=== PATIENT | female | born 1980 | race Asian ===

== ENCOUNTER 2022-07-28 10:06 | Outpatient (CLI) | payer OTHER ==
--- NOTE | 2022-07-28 10:51 | XRAY Report ---
PROCEDURE: Chest 2 View X-Ray INDICATIONS: COUGH TECHNIQUE: 2 views of the chest were acquired. COMPARISON: None FINDINGS: Surgical changes and devices: None. Lungs and pleura: No pleural effusions or pneumothorax. Lungs are clear. Mediastinum: Mediastinal contours are normal. Heart size is normal. Bones and chest wall: No suspicious bony abnormalities. Soft tissues appear unremarkable. IMPRESSION: No evidence for active disease in the chest. Reviewed by: Hugh Ulloa MD on 07/28/2022 10:49 AM [facility] Approved by: Hugh Ulloa MD on 07/28/2022 10:49 AM [facility] Station ID: [id number]
== END 2022-07-28 10:07 | disposition home or self-care (01) ==
LOC: DI 10:06
PROVIDERS: ATTEND Internal Medicine
DX: R05.3 Chronic cough (principal)

== ENCOUNTER 2022-07-29 02:59 | Emergency (ER) | payer OTHER ==
--- NOTE | 2022-07-29 04:13 | ED Physician Documentation ---
PD HPI DYSPNEA - Stated complaint Stated Complaint: hard to breathe, cough - Chief complaint Chief Complaint: Resp - History obtained from History obtained from: Patient - History of Present Illness Timing - onset: How many weeks ago (1) Timing - details: Gradual onset Improved by: Other (no ameliorating factors) Associated symptoms: Cough, Chest pain / discomfort. 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 Had outpatient CXR yesterday and this was interpreted as a normal study by radiologist ("no evidence for active disease in the chest"). Review of Systems Constitutional: denies: Fever, Chills, Sweats Cardiac: reports: Chest pain / pressure. denies: Palpitations, Pedal edema, Calf pain Respiratory: reports: Dyspnea, Cough. denies: Hemoptysis, Wheezing PD ED PE NORMAL - Vitals Vital signs reviewed: Yes - General General: Alert and oriented X 3, No acute distress, Well developed/nourished - HEENT HEENT: Moist mucous membranes - Neck Neck: Supple, no meningeal sign - Cardiac Cardiac: RRR, No murmur - Respiratory Respiratory: No respiratory distress, Clear bilaterally - Extremities Extremities: No edema Results - Vitals Vitals: Vital Signs - 24 hr 07/29/22 07/29/22 03:08 05:01 Temperature 36.9 C 2.6 C L Heart Rate 87 84 Respiratory 16 20 Rate Blood Pressure 110/65 116/73 O2 Saturation 99 99 Oxygen O2 Source Room air - Labs Labs: Laboratory Tests 07/29/22 03:05 Nasal Adenovirus (PCR) NOT DETECTED Nasal B. parapertussis DNA (PCR) NOT DETECTED Nasal Coronavir 229E PCR NOT DETECTED Nasal Coronavir HKU1 PCR NOT DETECTED Nasal Coronavir NL63 PCR NOT DETECTED Nasal Coronavir OC43 PCR NOT DETECTED Nasal Enterovir/Rhinovir PCR NOT DETECTED Nasal Influenza B PCR NOT DETECTED Nasal Influenza A PCR NOT DETECTED Nasal Parainfluen 1 PCR NOT DETECTED Nasal Parainfluen 2 PCR NOT DETECTED Nasal Parainfluen 3 PCR NOT DETECTED Nasal Parainfluen 4 PCR NOT DETECTED Nasal RSV (PCR) DETECTED A Nasal B.pertussis DNA PCR NOT DETECTED Nasal C.pneumoniae (PCR) NOT DETECTED Amilcar Human Metapneumo PCR NOT DETECTED Nasal M.pneumoniae (PCR) NOT DETECTED Nasal SARS-CoV-2 (PCR) NOT DETECTED PD MEDICAL DECISION MAKING - ED course Complexity details: considered differential, d/w patient ED course: Respiratory PCR panel is positive for RSV, negative for other viruses tested. She is PERC negative. She is in NAD and lungs are CTA bilaterally on exam. Results d/w patient, return precautions discussed. Provided with work note. Departure - Departure Disposition: Home, Self Care Clinical Impression: RSV infection Condition: Good Instructions: Virus Respiratory Syncytial, ED RSV Bronchiolitis Follow-Up: Meghana Bridges MD [Primary Care Provider] - Forms: Activity restrictions Discharge Date/Time: 07/29/22 05:01
[2022-07-29 04:21] LABS: CORONAVIRUS 229E-RESP PCR NOT DETECTED; CORONAVIRUS HKU1-RESP PCR NOT DETECTED; CORONAVIRUS NL63-RESP PCR NOT DETECTED; CORONAVIRUS OC43-RESP PCR NOT DETECTED; HUMAN METAPNEUMOVIRUS NOT DETECTED; INFLUENZA A- RESP PCR PANEL NOT DETECTED; INFLUENZA B - RESP PCR PANEL NOT DETECTED; PARAINFLUENZA VIRUS 1 NOT DETECTED; PARAINFLUENZA VIRUS 2 NOT DETECTED; PARAINFLUENZA VIRUS 3 NOT DETECTED; PARAINFLUENZA VIRUS 4 NOT DETECTED; RHINOVIRUS/ENTEROVIRUS NOT DETECTED; SARS-CoV-2 -RESP PCR PANEL NOT DETECTED
[2022-07-29 04:22] LABS: B. PARAPERTUSSIS- RESP PCR PAN NOT DETECTED; B. PERTUSSIS- RESP PCR PANEL NOT DETECTED; C. PNEUMONIAE- RESP PCR PANEL NOT DETECTED; M. PNEUMONIAE- RESP PCR PANEL NOT DETECTED; RSV- RESP PCR PANEL DETECTED
[2022-07-29 05:05] VITALS: BP 116/73
== END 2022-07-29 05:01 | disposition home or self-care (01) ==
LOC: ED 02:59
DX: R05.9 Cough, unspecified (principal); B97.4 Respiratory syncytial virus as the cause of diseases classified elsewhere; Z20.822 Contact with and (suspected) exposure to COVID-19
CPT/HCPCS: 87633; 99283

== ENCOUNTER 2022-08-08 22:36 | Emergency (ER) | payer OTHER ==
--- NOTE | 2022-08-08 23:14 | ED Physician Documentation ---
PD HPI CHEST PAIN - Stated complaint Stated Complaint: CHEST PX,LT SIDE NUMB & PX - Chief complaint Chief Complaint: Cardiac - History obtained from History obtained from: Patient - Additional information Additional information: 42yF with pmh hld, nonsmoker, p/w cp at rest that started suddenly while standing talking on the phone. radiates to back, L shoulder, a/w shoulder numbness. patient was concerned because her HR was 140 on home HR monitor. she recently was ill with RSV with frequent coughing per her report. pain is reproducible with palpation. Review of Systems Ten Systems: 10 systems reviewed and negative Constitutional: denies: Fever, Chills Cardiac: reports: Chest pain / pressure, Palpitations Respiratory: denies: Dyspnea, Cough GI: denies: Nausea PD PAST MEDICAL HISTORY - Past Surgical History Past Surgical History: No - Present Medications Home Medications: Ambulatory Orders Medication Instructions Recorded Confirmed Melatonin 3 mg PO 08/08/22 Ketorolac [Toradol] 10 mg PO Q6H PRN #30 tablet 08/09/22 - Allergies Allergies/Adverse Reactions: Allergies Allergy/AdvReac Type Severity Reaction Status Date / Time No Known Drug Allergies Allergy Verified 08/08/22 22:53 - Social History Does the pt smoke?: No Smoking Status: Never smoker Does the pt drink ETOH?: No Does the pt have substance abuse?: No - Immunizations Immunizations are current?: No - POLST Patient has POLST: No PD ED PE NORMAL - Vitals Vital signs reviewed: Yes - General General: Alert and oriented X 3, No acute distress - HEENT HEENT: Atraumatic, PERRL, EOMI - Neck Neck: Supple, no meningeal sign - Cardiac Cardiac: RRR - Respiratory Respiratory: No respiratory distress, Clear bilaterally - Abdomen Abdomen: Non tender, Non distended Results - Vitals Vitals: Vital Signs - 24 hr 08/08/22 08/08/22 08/09/22 22:42 23:20 00:25 Temperature 36.7 C Heart Rate 82 64 66 Respiratory 92 H 18 15 Rate Blood Pressure 115/84 H 161/99 H 111/69 O2 Saturation 100 97 97 08/09/22 08/09/22 08/09/22 00:30 01:03 01:17 Temperature Heart Rate 61 65 Respiratory 15 14 Rate Blood Pressure 113/76 110/75 O2 Saturation 98 98 Oxygen O2 Source Room air - EKG (time done) 2240 Rate: Rate (enter#) (86) Rhythm: NSR [place]: Normal Intervals: QRS normal Ischemia: T wave inversion (v6 (but not I/avL)) Computer interpretation: Disagree with computer (ekg not c/w old infarct) - Labs Labs: Laboratory Tests 08/08/22 08/08/22 08/08/22 23:16 23:16 23:16 WBC 10.2 RBC 4.83 Hgb 12.8 Hct 40.0 MCV 82.8 MCH 26.5 L MCHC 32.0 RDW 12.6 Plt Count 333 MPV 9.5 Neut # (Auto) 5.9 Lymph # (Auto) 3.1 [place] # (Auto) 0.8 Eos # (Auto) 0.3 Baso # (Auto) 0.1 Absolute Nucleated RBC 0.00 Nucleated RBC % 0.0 Sodium 134 L Potassium 3.6 Chloride 100 L Carbon Dioxide 26 Anion Gap 8.0 BUN 12 Creatinine 0.6 Estimated GFR (MDRD) 111 Glucose 93 Calcium 9.4 Total Bilirubin 1.4 H AST 20 ALT 26 Alkaline Phosphatase 26 L Troponin I High Sens 3.8 Total Protein 7.4 Albumin 4.1 Globulin 3.3 Albumin/Globulin Ratio 1.2 Lipase 37 PD Medical Decision Making - ED course ED course: 42yF presented for evaluation of CP. cardiac etiology unlikely given clinical picture. HEART score 1. PERC negative therefore PE unlikely. CXR clear for pneumonia, PTX or effusion. pain is reroducible with palpation. in setting of recent URI, perhaps patient experiencing some post tussive costochondral pain. toradol provided and return precautions given. plan to f/u with pcp. Departure - Departure Disposition: 01 Home, Self Care Clinical Impression: Chest pain Condition: Good Instructions: ED Chest Pain Atypical Unkn Cause Prescriptions: Ketorolac [Toradol] 10 mg PO Q6H PRN #30 tablet PRN Reason: Pain Comments: You are seen in the emergency department for chest pain and underwent a cardiac evaluation. Your lab work, x-ray, and EKG showed no emergent findings. Please follow-up with your primary care provider and return to the emergency department for any new or worsening symptoms or concerns. A prescription for Toradol was printed and provided to you in the ED. This is a NSAID pain medication.
[2022-08-08 23:24] LABS: BASOPHILS # (AUTO) 0.1 10^3/uL (0.0-0.1); BASOPHILS % (AUTO) 0.6 %; EOSINOPHILS # (AUTO) 0.3 10^3/uL (0.0-0.7); EOSINOPHILS % (AUTO) 2.8 %; HGB - HEMOGLOBIN 12.8 g/dL (12.0-16.0); LYMPHOCYTES # (AUTO) 3.1 10^3/uL (1.5-3.5); LYMPHOCYTES % (AUTO) 30.3 %; MEAN CORPUSCULAR HEMOGLOBIN 26.5 pg (27.0-31.0); MEAN CORPUSCULAR VOLUME 82.8 fL (81.0-99.0); MEAN PLATELET VOLUME 9.5 fL (7.9-10.8); MONOCYTES # (AUTO) 0.8 10^3/uL (0.0-1.0); MONOCYTES % (AUTO) 7.7 %; NEUTROPHILS # (AUTO) 5.9 10^3/uL (1.5-6.6); NEUTROPHILS % (AUTO) 58.3 %; PLT - PLATELET COUNT 333 10^3/uL (130-450); RED BLOOD COUNT 4.83 10^6/uL (4.20-5.40); RED CELL DISTRIBUTION WIDTH 12.6 % (12.0-15.0); WHITE BLOOD COUNT 10.2 x10^3/uL (4.8-10.8)
[2022-08-08 23:35] LABS: ALBUMIN 4.1 g/dL (3.2-5.5); ALBUMIN/GLOBULIN RATIO 1.2 (1.0-2.2); BILIRUBIN,TOTAL 1.4 mg/dL (0.2-1.0); CALCIUM 9.4 mg/dL (8.5-10.3); CREATININE 0.6 mg/dL (0.4-1.0); POTASSIUM 3.6 mmol/L (3.5-5.0); TOTAL PROTEIN 7.4 g/dL (6.7-8.2)
--- NOTE | 2022-08-09 00:35 | XRAY Report ---
PROCEDURE: Chest 1 View X-Ray INDICATIONS: Chest pain TECHNIQUE: One view of the chest was acquired. COMPARISON: Chest x-ray 07/28/2022. FINDINGS: Surgical changes and devices: None. Lungs and pleura: No pleural effusions or pneumothorax. Lungs are clear. Mediastinum: Mediastinal contours appear normal. Heart size is normal. Bones and chest wall: No suspicious bony lesions. Overlying soft tissues appear unremarkable. IMPRESSION: 1. No acute cardiopulmonary disease. Reviewed by: Rei Christie MD on 08/09/2022 12:43 AM PST Approved by: Rei Christie MD on 08/09/2022 12:43 AM PST Station ID: [id number]
[2022-08-09 01:31] VITALS: BP 111/77
[2022-08-09] MEDS: KETOROLAC 15 MG/ML VIAL IVP STA (01:39)
== END 2022-08-09 01:51 | disposition home or self-care (01) ==
LOC: ED 22:36
DX: R07.9 Chest pain, unspecified (principal)
CPT/HCPCS: 36415; 80053; 83690; 84484; 85025; 93005; 96374; 99282

== ENCOUNTER 2022-08-17 15:02 | Outpatient (CLI) | payer OTHER | END 2022-08-17 15:03 | disposition home or self-care (01) | LOC: DI 15:02 | PROVIDERS: ATTEND Internal Medicine | DX: R07.89 Other chest pain (principal); R94.31 Abnormal electrocardiogram [ECG] [EKG] | CPT/HCPCS: 93306 ==

== ENCOUNTER 2022-08-24 08:00 | Outpatient (CLI) | payer OTHER ==
[2022-08-24 18:04] LABS: BASOPHILS # (AUTO) 0.1 10^3/uL (0.0-0.1); BASOPHILS % (AUTO) 0.8 %; EOSINOPHILS # (AUTO) 0.1 10^3/uL (0.0-0.7); EOSINOPHILS % (AUTO) 1.3 %; HCT - HEMATOCRIT 42.6 % (37.0-47.0); HGB - HEMOGLOBIN 13.5 g/dL (12.0-16.0); LYMPHOCYTES # (AUTO) 2.7 10^3/uL (1.5-3.5); LYMPHOCYTES % (AUTO) 34.3 %; MEAN CORPUSCULAR HEMOGLOBIN 26.5 pg (27.0-31.0); MEAN CORPUSCULAR HGB CONC 31.7 g/dL (32.0-36.0); MEAN CORPUSCULAR VOLUME 83.7 fL (81.0-99.0); MEAN PLATELET VOLUME 10.5 fL (7.9-10.8); MONOCYTES # (AUTO) 0.6 10^3/uL (0.0-1.0); MONOCYTES % (AUTO) 7.3 %; NEUTROPHILS # (AUTO) 4.4 10^3/uL (1.5-6.6); PLT - PLATELET COUNT 349 10^3/uL (130-450); RED BLOOD COUNT 5.09 10^6/uL (4.20-5.40); RED CELL DISTRIBUTION WIDTH 12.5 % (12.0-15.0); WHITE BLOOD COUNT 7.9 x10^3/uL (4.8-10.8)
[2022-08-24 18:09] LABS: ALBUMIN 4.5 g/dL (3.2-5.5); ALBUMIN/GLOBULIN RATIO 1.5 (1.0-2.2); BILIRUBIN,TOTAL 1.9 mg/dL (0.2-1.0); CALCIUM 9.5 mg/dL (8.5-10.3); CREATININE 0.6 mg/dL (0.4-1.0); POTASSIUM 3.9 mmol/L (3.5-5.0); TOTAL PROTEIN 7.6 g/dL (6.7-8.2)
== END 2022-08-24 23:59 | disposition home or self-care (01) ==
LOC: LAB.N 08:00
PROVIDERS: ATTEND Nurse Practitioner
DX: R63.0 Anorexia (principal)
CPT/HCPCS: 36415; 80053; 85025

== ENCOUNTER 2022-08-28 18:09 | Outpatient (CLI) | payer OTHER ==
--- NOTE | 2022-08-29 15:11 | Ultrasound Report ---
PROCEDURE: Pelvic w/Transvaginal INDICATIONS: OVARIAN CA SCREENING TECHNIQUE: Real-time scanning was performed of the pelvic organs, with image documentation. Additional endovagi nal scanning was necessary due to incomplete visualization of the adnexal and endometrial structures by transabdominal scanning. COMPARISON: None. FINDINGS: Right ovary measures 2.8 x 2.8 x 2.2 cm. Left ovary measures 3.5 x 3.1 x 2.0 cm. Bilateral ovarian fo llicles noted. No solid or vascular ovarian mass identified. Small volume free fluid in the cervical canal. Uterus normal. IMPRESSION: Normal study with no suspicious ovarian or adnexal mass. Reviewed by: Dante Gipson MD on 08/29/2022 3:10 PM PST Approved by: Dante Gipson MD on 08/29/2022 3:10 PM PST Station ID: [id number]
== END 2022-08-28 18:10 | disposition home or self-care (01) ==
LOC: DI 18:09
PROVIDERS: ATTEND Internal Medicine
DX: Z12.73 Encounter for screening for malignant neoplasm of ovary (principal)

== ENCOUNTER 2022-09-15 16:09 | Outpatient (CLI) | payer OTHER ==
--- NOTE | 2022-09-16 03:04 | Ultrasound Report ---
PROCEDURE: Ext Limited Non Vascular INDICATIONS: LUMP ON ANTERIOR RLL TECHNIQUE: Real-time scanning was performed of the right pretibial region, with image documentation. COMPARISON: None. FINDINGS: Ultrasound evaluation in the area of clinical concern anterior to the mid right tibia demonstrates an oval heterogeneous predominantly hypoechoic lesion with indistinct margins measuring approximately 1 .9 x 0.9 x 0.5 cm. There is no internal vascularity on color Doppler interrogation. IMPRESSION: 1. Heterogeneous hypoechoic region demonstrated in the area of palpable abnormality. Given history of prior trauma to this area, the findings likely represent a hematoma secondary to prior trauma. Recom mend clinical follow-up to demonstrate resolution. Reviewed by: Rei Christie MD on 09/16/2022 3:02 AM PST Approved by: Rei Christie MD on 09/16/2022 3:02 AM PST Station ID: [id number]
== END 2022-09-15 16:10 | disposition home or self-care (01) ==
LOC: DI 16:09
PROVIDERS: ATTEND Physician Assistant
DX: R22.41 Localized swelling, mass and lump, right lower limb (principal)

== ENCOUNTER 2022-09-23 11:45 | Emergency (ER) | payer OTHER ==
--- NOTE | 2022-09-23 12:40 | ED Physician Documentation ---
History of Present Illness - Stated complaint Stated Complaint: TINGLING FT/HANDS - Chief complaint Chief Complaint: General - Additonal information Additional information: 42-year-old female presents to the emergency department for evaluation of generalized tingling, chills, feeling of cold legs and soft stools. She denies any fevers. Symptoms have been present now for 2 days. Patient states she had COVID last week. Sometimes she feels faint and dizzy. Occasionally she is short of air. She takes no routinely prescribed medications with the exception of occasional Anusol suppositories for hemorrhoids. She typically only has bowel movements once a week but has been having softer, longer string-like stools for the last few days. She has a dry cough. Patient reports that she had COVID last week but home testing has been negative for about 3 or 4 days and she has return to work. History was very difficult to obtain. There was a significant language barrier. 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 However there are significant gaps in the ability to communicate. On presentation the patient appears remarkably well. She has unremarkable vitals. She has no cough. Her cardiopulmonary and abdominal exam were benign. When asked what she was most concerned could be the problem, she ultimately stated she was afraid she was going to today Review of Systems Unable to obtain: Other (language barriar; glass cutting machine operator #[id number] utilized) Constitutional: reports: Fatigue, Other (chills, cold legs). denies: Fever, Chills Eyes: reports: Reviewed and negative Nose: reports: Reviewed and negative Cardiac: denies: Chest pain / pressure Respiratory: reports: Dyspnea, Cough GI: reports: Reviewed and negative : reports: Reviewed and negative Skin: reports: Reviewed and negative Musculoskeletal: reports: Reviewed and negative Neurologic: reports: Reviewed and negative PD PAST MEDICAL HISTORY - Past Surgical History Past Surgical History: No - Present Medications Home Medications: Ambulatory Orders Medication Instructions Recorded Confirmed Melatonin 3 mg PO 08/08/22 Ketorolac [Toradol] 10 mg PO Q6H PRN #30 tablet 08/09/22 - Allergies Allergies/Adverse Reactions: Allergies Allergy/AdvReac Type Severity Reaction Status Date / Time No Known Drug Allergies Allergy Verified 08/08/22 22:53 - Social History Does the pt smoke?: No Smoking Status: Never smoker Does the pt drink ETOH?: No Does the pt have substance abuse?: No - Immunizations Immunizations are current?: No - POLST Patient has POLST: No PD ED PE NORMAL - General General: Alert and oriented X 3, No acute distress, Well developed/nourished - HEENT HEENT: Atraumatic, Moist mucous membranes, Pharynx benign - Neck Neck: Supple, no meningeal sign, No adenopathy - Cardiac Cardiac: RRR, No murmur - Respiratory Respiratory: No respiratory distress - Abdomen Abdomen: Normal bowel sounds, Soft - Back Back: No CVA TTP, No spinal TTP - Derm Derm: Normal color - Extremities Extremities: No deformity, No tenderness to palpate, Normal ROM s pain - Neuro Neuro: Alert and oriented X 3, 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 Eye Opening: Spontaneous Motor: Obeys Commands Verbal: Oriented GCS Score: 15 - Psych Psych: Normal mood Results - Vitals Vitals: Vital Signs - 24 hr 09/23/22 09/23/22 09/23/22 12:14 13:09 13:10 Temperature 37.2 C Heart Rate 82 78 Heart Rate [ 73 Sitting] Heart Rate [ 78 Standing] Heart Rate [ 67 Supine] Respiratory 18 16 Rate Blood Pressure 121/71 126/90 H Blood Pressure 116/80 [Sitting] Blood Pressure 126/90 H [Standing] Blood Pressure 116/71 [Supine] O2 Saturation 99 100 Oxygen O2 Source Room air - EKG (time done) 1249 Rate: Rate (enter#) (64) Rhythm: NSR [place]: Normal Intervals: Normal ID. No: Prolonged QT QRS: Low voltage Ischemia: Q waves (Inferior leads) Compare to prior EKG: Unchanged from prior EKG Computer interpretation: Agree with computer - Labs Labs: Laboratory Tests 09/23/22 09/23/22 09/23/22 12:38 13:06 13:06 WBC 8.6 RBC 4.89 Hgb 13.1 Hct 41.5 MCV 84.9 MCH 26.8 L MCHC 31.6 L RDW 12.5 Plt Count 313 MPV 10.5 Neut # (Auto) 6.5 Lymph # (Auto) 1.5 [place] # (Auto) 0.4 Eos # (Auto) 0.1 Baso # (Auto) 0.0 Absolute Nucleated RBC 0.00 Nucleated RBC % 0.0 Sodium 137 Potassium 4.0 Chloride 103 Carbon Dioxide 24 Anion Gap 10.0 BUN 12 Creatinine 0.5 Estimated GFR (MDRD) 137 Glucose 86 Calcium 9.6 Total Bilirubin 2.0 H AST 14 ALT 17 Alkaline Phosphatase 29 L Total Protein 7.6 Albumin 4.5 Globulin 3.1 Albumin/Globulin Ratio 1.5 Lipase 39 HCG, Quant Urine Color YELLOW Urine Clarity CLEAR Urine pH 6.0 Ur Specific [place] <=1.005 Urine Protein NEGATIVE Urine Glucose (UA) NEGATIVE Urine Ketones TRACE Urine Occult Blood NEGATIVE Urine Nitrite NEGATIVE Urine Bilirubin NEGATIVE Urine Urobilinogen 0.2 (NORMAL) Ur Leukocyte Esterase TRACE H Urine RBC 0-5 Urine WBC 6-10 H Ur Squamous Epith Cells FEW Squamous Urine Bacteria None Seen Ur Microscopic Review INDICATED Urine Culture Comments INDICATED 09/23/22 13:06 WBC RBC Hgb Hct MCV MCH MCHC RDW Plt Count MPV Neut # (Auto) Lymph # (Auto) [place] # (Auto) Eos # (Auto) Baso # (Auto) Absolute Nucleated RBC Nucleated RBC % Sodium Potassium Chloride Carbon Dioxide Anion Gap BUN Creatinine Estimated GFR (MDRD) Glucose Calcium Total Bilirubin AST ALT Alkaline Phosphatase Total Protein Albumin Globulin Albumin/Globulin Ratio Lipase HCG, Quant < 0.60 Urine Color Urine Clarity Urine pH Ur Specific [place] Urine Protein Urine Glucose (UA) Urine Ketones Urine Occult Blood Urine Nitrite Urine Bilirubin Urine Urobilinogen Ur Leukocyte Esterase Urine RBC Urine WBC Ur Squamous Epith Cells Urine Bacteria Ur Microscopic Review Urine Culture Comments PD Medical Decision Making - ED course Complexity details: re-evaluated patient, considered differential, d/w patient ED course: 42-year-old female presents to the emergency department for evaluation of very vague complaints for the last few days. She reports softening stools. Generalized chills. Sensation that her legs are cold and she is having tingl ing. She has had no fevers. Reports she had COVID last week. Much of the history was difficult to obtain because of the language barrier though we did use the glass cutting machine operator line. Clinically her cardiopulmonary and abdominal exam were benign. She had no fevers and unremarkable vitals. I did obtain a EKG that was essentially unchanged from the most recent one completed in July. It showed no ischemic changes though there were Q waves in the inferior leads. Today her CBC showed no leukocytosis or worrisome anemia. I do note a mildly elevated bilirubin of 2. This is essentially unchanged from her most recent bilirubin which was 1.9. There was no abdominal tenderness elicited therefore we deferred imaging. Urinalysis was not consistent with infection. At this time the etiology of her symptoms is not clear though no acute emergent medical condition exists. She is encouraged to follow closely with her primary doctor. I do query if some of her symptoms are residual from recent COVID infection. She will be discharged home in stable condition. The usual emergent return precautions discussed Departure - Departure Disposition: 01 Home, Self Care Clinical Impression: Tingling, Sensation of cold in leg, Total bilirubin, elevated Condition: Stable Record reviewed to determine appropriate education?: Yes Comments: You came to the emergency department today because you have been feeling faint, lightheaded, dizzy, have a sensation of cold in your legs. You did report to us that you had COVID last week though you have gotten better and have been able to return to work. Here in the emergency department we did obtain your EKG which does not show any changes from the most recent 1 completed in July 2022. We obtained a CBC that was normal. Your electrolytes look essentially normal. You do have a mildly elevated bilirubin but previous labs have also shown a mildly elevated bilirubin. This is something to follow with your primary doctor. No imaging is warranted today in the emergency department. Your urine shows no signs of infection. Here in the emergency department your vital signs were normal. Your heart rate was normal. You had no fever. When we listen to your heart, lungs and did an abdominal exam no worrisome findings were noted. At this time we would like you to follow your symptoms with your primary care provider. Reasons to return to the ER would be the development of any fever, any fainting, sudden severe chest pain or inability to breathe well Discharge Date/Time: 09/23/22 14:10
[2022-09-23 13:10] LABS: BILIRUBIN,URINE NEGATIVE (NEGATIVE); GLUCOSE, URINE (UA) NEGATIVE (NEGATIVE); KETONES,URINE (UA) TRACE mg/dL (NEGATIVE); LEUKOCYTE ESTERASE, URINE TRACE (NEGATIVE); NITRITE,URINE NEGATIVE (NEGATIVE); OCCULT BLOOD,URINE NEGATIVE (NEGATIVE); PROTEIN,URINE NEGATIVE (NEGATIVE); UROBILINOGEN,URINE 0.2 (NORMAL) E.U./dL (NORMAL)
[2022-09-23 13:14] VITALS: BP 126/90
--- OUTSIDE RECORDS SUMMARY | 2022-09-23 13:16 | EXTERNAL MEDICAL SUMMARY RPT | Continuity of Care Document ---
:1980 Author Organization [facility] Address [address] [place] [address] Phone Care Team Providers Name Role Phone Yvette Abrams Unavailable Unavailable Allergies No information. Encounters No information. Functional Status No information. Immunizations No information. Medications No information. Problems No information. Procedures No information. Results/Labs test date author facility value unit interpret ation Result panel 1 (unknown) (no (unknown) (unknown) (no value) (units (unk nown) date) unknown) (unknown) (no (unknown) (unknown) 09/03/22 (units (unkno wn) date) unknown) (unknown) (no (unknown) (unknown) 013 (units (unkno wn) date) unknown) (unknown) (no (unknown) (unknown) Age/Sex: 42 / F (units (unknown) date) Date of Service: unknown) (unknown) (no (unknown) (unknown) Allergies (units (unkn own) date) unknown) (unknown) (no (unknown) (unknown) [facility] (units (unknown) date) Medicine unknown) (unknown) (no (unknown) (unknown) [place], [place] (units ( unknown) date) [id number] unknown) (unknown) (no (unknown) (unknown) Attending Dr: (units ( unknown) date) Yvette Abrams unknown) P.A-C (unknown) (no (unknown) (unknown) COVID + pt (units (unk nown) date) presents unknown) requesting antiviral. Symptoms for 4 days. Tested positive (unknown) (no (unknown) (unknown) : 1980 (units (unknown) date) Acct:[id number] unknown) (unknown) (no (unknown) (unknown) Dept at (units (unkno wn) date) . unknown) (unknown) (no (unknown) (unknown) Documented By: (units (unknown) date) Yvette Abrams unknown) P.A-Peter 09/03/22 1 (unknown) (no (unknown) (unknown) Draft (units (unkno wn) date) unknown) (unknown) (no (unknown) (unknown) Family [facility] (units (unknown) date) Office Visit unknown) (unknown) (no (unknown) (unknown) Intake Note: (units (u nknown) date) unknown) (unknown) (no (unknown) (unknown) Intake performed (units (unknown) date) by: unknown) Danilo Cobian (unknown) (no (unknown) (unknown) Intake (units (unkno wn) date) unknown) (unknown) (no (unknown) (unknown) Intake- Clincial (units (unknown) date) Staff unknown) (unknown) (no (unknown) (unknown) Loc: [facility] (units (unkno wn) date) unknown) (unknown) (no (unknown) (unknown) Medications (units (un known) date) unknown) (unknown) (no (unknown) (unknown) No Known Drug (units ( unknown) date) Allergies Allergy unknown) (Unverified 09/03/22 10:14) (unknown) (no (unknown) (unknown) No Known Home (units ( unknown) date) Medications unknown) 09/03/22 [History Confirmed 09/03/22] (unknown) (no (unknown) (unknown) PFSH (units (unkno wn) date) unknown) (unknown) (no (unknown) (unknown) Patient: (units (unkno wn) date) Reid Jovel unknown) nnart M (unknown) (no (unknown) (unknown) R#: [id number] (units (unknown) date) unknown) (unknown) (no (unknown) (unknown) Reason For Visit (units (unknown) date) unknown) (unknown) (no (unknown) (unknown) Signed By: (units (unk nown) date) unknown) (unknown) (no (unknown) (unknown) Smoking Status: (units (unknown) date) Never smoker unknown) (unknown) (no (unknown) (unknown) This note may (units ( unknown) date) have been all or unknown) partially generated using voice recognition (unknown) (no (unknown) (unknown) Tobacco + (units (unkn own) date) Substance Use unknown) (unknown) (no (unknown) (unknown) Tobacco Status (units (unknown) date) unknown) (unknown) (no (unknown) (unknown) Visit Reasons: (units (unknown) date) [employer] + COVID, unknown) requests antiviral (unknown) (no (unknown) (unknown) have occurred. (units (unknown) date) If there are any unknown) questions, please contact the Medical Records (unknown) (no (unknown) (unknown) may occur. (units (unk nown) date) Occasional unknown) wrong-word or 'sound-alike' substitutions may have (unknown) (no (unknown) (unknown) occurred due to (units (unknown) date) the inherent unknown) limitations of voice recognition software. Please (unknown) (no (unknown) (unknown) read the note (units ( unknown) date) carefully and unknown) recognize, using context, where these substitutions (unknown) (no (unknown) (unknown) software. (units (unkn own) date) Although every unknown) effort is made to edit content, derrick hand errors (unknown) (no (unknown) (unknown) this morning. (units ( unknown) date) unknown) Result panel 2 (unknown) (no (unknown) (unknown) (no value) (units (unk nown) date) unknown) (unknown) (no (unknown) (unknown) 09/03/22 (units (unkno wn) date) unknown) (unknown) (no (unknown) (unknown) 013 (units (unkno wn) date) unknown) (unknown) (no (unknown) (unknown) 10:19 (units (unkno wn) date) unknown) (unknown) (no (unknown) (unknown) Age/Sex: 42 / F (units (unknown) date) Date of Service: unknown) (unknown) (no (unknown) (unknown) Allergies (units (unkn own) date) unknown) (unknown) (no (unknown) (unknown) [facility] (units (unknown) date) Medicine unknown) (unknown) (no (unknown) (unknown) [place], [place] (units ( unknown) date) [id number] unknown) (unknown) (no (unknown) (unknown) Attending Dr: (units ( unknown) date) Yvette Abrams unknown) P.A-C (unknown) (no (unknown) (unknown) BMI 31.1 (units (unkno wn) date) unknown) (unknown) (no (unknown) (unknown) BP 120/70 (units (unkn own) date) unknown) (unknown) (no (unknown) (unknown) Blood Pressure (units (unknown) date) Location Lt unknown) brachial (unknown) (no (unknown) (unknown) COVID + pt (units (unk nown) date) presents unknown) requesting antiviral. Symptoms for 4 days. Tested positive (unknown) (no (unknown) (unknown) : 1980 (units (unknown) date) Acct:[id number] unknown) (unknown) (no (unknown) (unknown) Dept at (units (unkno wn) date) . unknown) (unknown) (no (unknown) (unknown) Documented By: (units (unknown) date) Yvette Abrams unknown) PZandraA-C 09/03/22 1 (unknown) (no (unknown) (unknown) Draft (units (unkno wn) date) unknown) (unknown) (no (unknown) (unknown) Family Practice (units (unknown) date) Office Visit unknown) (unknown) (no (unknown) (unknown) Height 5 ft 3 in (units (unknown) date) unknown) (unknown) (no (unknown) (unknown) Intake Note: (units (u nknown) date) unknown) (unknown) (no (unknown) (unknown) Intake performed (units (unknown) date) by: unknown) Danilo Cobian (unknown) (no (unknown) (unknown) Intake (units (unkno wn) date) unknown) (unknown) (no (unknown) (unknown) Intake- Clincial (units (unknown) date) Staff unknown) (unknown) (no (unknown) (unknown) Loc: [facility] (units (unkno wn) date) unknown) (unknown) (no (unknown) (unknown) Medications (units (un known) date) unknown) (unknown) (no (unknown) (unknown) No Known Drug (units ( unknown) date) Allergies Allergy unknown) (Unverified 09/03/22 10:14) (unknown) (no (unknown) (unknown) No Known Home (units ( unknown) date) Medications unknown) 09/03/22 [History Confirmed 09/03/22] (unknown) (no (unknown) (unknown) Oxygen Delivery (units (unknown) date) Method room air unknown) (unknown) (no (unknown) (unknown) PFSH (units (unkno wn) date) unknown) (unknown) (no (unknown) (unknown) Patient: (units (unkno wn) date) Reid Jovel unknown) nnart M (unknown) (no (unknown) (unknown) Position Sitting (units (unknown) date) unknown) (unknown) (no (unknown) (unknown) Pulse 79 (units (unkno wn) date) unknown) (unknown) (no (unknown) (unknown) Pulse Oximetry (units (unknown) date) (%) 99 unknown) (unknown) (no (unknown) (unknown) Pulse Source (units (u nknown) date) Monitor unknown) (unknown) (no (unknown) (unknown) R#: [id number] (units (unknown) date) unknown) (unknown) (no (unknown) (unknown) Reason For Visit (units (unknown) date) unknown) (unknown) (no (unknown) (unknown) Respiration 18 (units (unknown) date) unknown) (unknown) (no (unknown) (unknown) Signed By: (units (unk nown) date) unknown) (unknown) (no (unknown) (unknown) Smoking Status: (units (unknown) date) Never smoker unknown) (unknown) (no (unknown) (unknown) Temp 98 F (units (unkn own) date) unknown) (unknown) (no (unknown) (unknown) Temp Source Oral (units (unknown) date) unknown) (unknown) (no (unknown) (unknown) This note may (units ( unknown) date) have been all or unknown) partially generated using voice recognition (unknown) (no (unknown) (unknown) Tobacco + (units (unkn own) date) Substance Use unknown) (unknown) (no (unknown) (unknown) Tobacco Status (units (unknown) date) unknown) (unknown) (no (unknown) (unknown) Visit Reasons: (units (unknown) date) [employer] + COVID, unknown) requests antiviral (unknown) (no (unknown) (unknown) Vitals (units (unkno wn) date) unknown) (unknown) (no (unknown) (unknown) Weight 175 lb 7 (units (unknown) date) oz unknown) (unknown) (no (unknown) (unknown) have occurred. (units (unknown) date) If there are any unknown) questions, please contact the Medical Records (unknown) (no (unknown) (unknown) may occur. (units (unk nown) date) Occasional unknown) wrong-word or 'sound-alike' substitutions may have (unknown) (no (unknown) (unknown) occurred due to (units (unknown) date) the inherent unknown) limitations of voice recognition software. Please (unknown) (no (unknown) (unknown) read the note (units ( unknown) date) carefully and unknown) recognize, using context, where these substitutions (unknown) (no (unknown) (unknown) software. (units (unkn own) date) Although every unknown) effort is made to edit content, derrick hand errors (unknown) (no (unknown) (unknown) this morning. (units ( unknown) date) unknown) Result panel 3 (unknown) (no (unknown) (unknown) (no value) (units (unk nown) date) unknown) (unknown) (no (unknown) (unknown) (1) COVID-19: (units ( unknown) date) unknown) (unknown) (no (unknown) (unknown) 09/03/22 1106 (units ( unknown) date) unknown) (unknown) (no (unknown) (unknown) 09/03/22 (units (unkno wn) date) unknown) (unknown) (no (unknown) (unknown) 013 (units (unkno wn) date) unknown) (unknown) (no (unknown) (unknown) 10:19 (units (unkno wn) date) unknown) (unknown) (no (unknown) (unknown) 4 days. COVID-19 (units (unknown) date) test was unknown) positive. She is taken Tylenol with some relief. (unknown) (no (unknown) (unknown) Add'l Complaint: (units (unknown) date) unknown) (unknown) (no (unknown) (unknown) Age/Sex: 42 / F (units (unknown) date) Date of Service: unknown) (unknown) (no (unknown) (unknown) All systems (units (un known) date) reviewed + are unknown) unremarkable except as noted in HPI and below (unknown) (no (unknown) (unknown) Allergies (units (unkn own) date) unknown) (unknown) (no (unknown) (unknown) [facility] (units (unknown) date) Medicine unknown) (unknown) (no (unknown) (unknown) [place], [place] (units ( unknown) date) [id number] unknown) (unknown) (no (unknown) (unknown) Assessment + (units (u nknown) date) Plan unknown) (unknown) (no (unknown) (unknown) Attending Dr: (units ( unknown) date) Yvette Abrams unknown) P.A-C (unknown) (no (unknown) (unknown) BACK: Nontender (units (unknown) date) without deformity unknown) or crepitance. No flank tenderness. (unknown) (no (unknown) (unknown) BMI 31.1 (units (unkno wn) date) unknown) (unknown) (no (unknown) (unknown) BP 120/70 (units (unkn own) date) unknown) (unknown) (no (unknown) (unknown) Blood Pressure (units (unknown) date) Location Lt unknown) brachial (unknown) (no (unknown) (unknown) CARDIOVASCULAR: (units (unknown) date) Regular rate and unknown) rhythm without murmurs, gallops, or rubs. (unknown) (no (unknown) (unknown) COVID + pt (units (unk nown) date) presents unknown) requesting antiviral. Symptoms for 4 days. Tested positive (unknown) (no (unknown) (unknown) COVID-19 (units (unkno wn) date) positive unknown) (unknown) (no (unknown) (unknown) Chief Complaint (units (unknown) date) unknown) (unknown) (no (unknown) (unknown) Chief Complaint: (units (unknown) date) Sore throat unknown) fatigue chest tightness (unknown) (no (unknown) (unknown) Const (units (unkno wn) date) unknown) (unknown) (no (unknown) (unknown) : 1980 (units (unknown) date) Acct:[id number] unknown) (unknown) (no (unknown) (unknown) Dept at (units (unkno wn) date) . unknown) (unknown) (no (unknown) (unknown) Details: (units (unkno wn) date) unknown) (unknown) (no (unknown) (unknown) Discussed with (units (unknown) date) patient diagnosis unknown) and treatment. Her exam is reassuring, her (unknown) (no (unknown) (unknown) Documented By: (units (unknown) date) Yvette Abrams unknown) Jessica 09/03/22 1 (unknown) (no (unknown) (unknown) ENT: Nasopharynx (units (unknown) date) is patchy unknown) erythematous without bleeding, purulent drainage. (unknown) (no (unknown) (unknown) EXTREMITIES: No (units (unknown) date) edema or joint unknown) tenderness. (unknown) (no (unknown) (unknown) EYES: Pupils (units (u nknown) date) equal round and unknown) reactive. Extraocular motions intact. No scleral (unknown) (no (unknown) (unknown) Exam Narrative (units (unknown) date) unknown) (unknown) (no (unknown) (unknown) Exam Narrative: (units (unknown) date) unknown) (unknown) (no (unknown) (unknown) Exam (units (unkno wn) date) unknown) (unknown) (no (unknown) (unknown) Family Practice (units (unknown) date) Office Visit unknown) (unknown) (no (unknown) (unknown) GASTROINTESTINAL (units (unknown) date) : Abdomen soft, unknown) non-tender, nondistended. (unknown) (no (unknown) (unknown) GENERAL: 42 year (units (unknown) date) old patient unknown) appears stated age. Well-developed patient, in no (unknown) (no (unknown) (unknown) HEAD: (units (unkno wn) date) Atraumatic. unknown) Normocephalic. (unknown) (no (unknown) (unknown) HPI (units (unkno wn) date) unknown) (unknown) (no (unknown) (unknown) Height 160.02 cm (units (unknown) date) unknown) (unknown) (no (unknown) (unknown) Intake Note: (units (u nknown) date) unknown) (unknown) (no (unknown) (unknown) Intake performed (units (unknown) date) by: unknown) Danilo Cobian (unknown) (no (unknown) (unknown) Intake (units (unkno wn) date) unknown) (unknown) (no (unknown) (unknown) Intake- Clincial (units (unknown) date) Staff unknown) (unknown) (no (unknown) (unknown) Loc: [facility] (units (unkno wn) date) unknown) (unknown) (no (unknown) (unknown) Medications (units (un known) date) unknown) (unknown) (no (unknown) (unknown) NECK: Trachea (units ( unknown) date) midline. Non unknown) tender (unknown) (no (unknown) (unknown) NEURO: AOx3. No (units (unknown) date) focal deficits unknown) (unknown) (no (unknown) (unknown) No Known Drug (units ( unknown) date) Allergies Allergy unknown) (Verified 09/03/22 10:31) (unknown) (no (unknown) (unknown) No Known Home (units ( unknown) date) Medications unknown) 09/03/22 [History Confirmed 09/03/22] (unknown) (no (unknown) (unknown) Onset: 08/31/22 (units (unknown) date) unknown) (unknown) (no (unknown) (unknown) Oxygen Delivery (units (unknown) date) Method room air unknown) (unknown) (no (unknown) (unknown) PFSH (units (unkno wn) date) unknown) (unknown) (no (unknown) (unknown) Patient is 42 (units ( unknown) date) years old unknown) female without significant medical history, (unknown) (no (unknown) (unknown) Patient: (units (unkno wn) date) Ramón,Nali unknown) nnart M (unknown) (no (unknown) (unknown) Plan (units (unkno wn) date) unknown) (unknown) (no (unknown) (unknown) Position Sitting (units (unknown) date) unknown) (unknown) (no (unknown) (unknown) Pulse 79 (units (unkno wn) date) unknown) (unknown) (no (unknown) (unknown) Pulse Oximetry (units (unknown) date) (%) 99 unknown) (unknown) (no (unknown) (unknown) Pulse Source (units (u nknown) date) Monitor unknown) (unknown) (no (unknown) (unknown) R#: [id number] (units (unknown) date) unknown) (unknown) (no (unknown) (unknown) RESPIRATORY: (units (un known) date) Clear to unknown) auscultation. Breath sounds equal bilaterally. No wheezes, (unknown) (no (unknown) (unknown) ROS (units (unkno wn) date) unknown) (unknown) (no (unknown) (unknown) Reason For Visit (units (unknown) date) unknown) (unknown) (no (unknown) (unknown) Respiration 18 (units (unknown) date) unknown) (unknown) (no (unknown) (unknown) SKIN: No rash or (units (unknown) date) erythema of unknown) visible areas (unknown) (no (unknown) (unknown) Signed By: (units (unk nown) date) <Electronically unknown) signed by Yvette Abrams> (unknown) (no (unknown) (unknown) Signed (units (unkno wn) date) unknown) (unknown) (no (unknown) (unknown) Smoking Status: (units (unknown) date) Never smoker unknown) (unknown) (no (unknown) (unknown) Status: Acute (units ( unknown) date) unknown) (unknown) (no (unknown) (unknown) Temp 98 F (units (unkn own) date) unknown) (unknown) (no (unknown) (unknown) Temp Source Oral (units (unknown) date) unknown) (unknown) (no (unknown) (unknown) This note may (units ( unknown) date) have been all or unknown) partially generated using voice recognition (unknown) (no (unknown) (unknown) Throat without (units (unknown) date) erythema, Cornelia's unknown) no tonsillar hypertrophy or exudate. Airway (unknown) (no (unknown) (unknown) Tobacco + (units (unkn own) date) Substance Use unknown) (unknown) (no (unknown) (unknown) Tobacco Status (units (unknown) date) unknown) (unknown) (no (unknown) (unknown) Visit Reasons: (units (unknown) date) [employer] + COVID, unknown) requests antiviral (unknown) (no (unknown) (unknown) Vitals (units (unkno wn) date) unknown) (unknown) (no (unknown) (unknown) Weight 79.577 kg (units (unknown) date) unknown) (unknown) (no (unknown) (unknown) What concerns (units ( unknown) date) her the most is unknown) her sore throat. Denies nausea vomiting. Denies (unknown) (no (unknown) (unknown) acute distress. (units (unknown) date) unknown) (unknown) (no (unknown) (unknown) dizziness, (units (unk nown) date) extreme weakness. unknown) (unknown) (no (unknown) (unknown) have occurred. (units (unknown) date) If there are any unknown) questions, please contact the Medical Records (unknown) (no (unknown) (unknown) icterus. No (units (un known) date) injection or unknown) drainage. (unknown) (no (unknown) (unknown) immunized and (units (u nknown) date) boosted, who unknown) presents to clinic with complaints of sore throat, lo (unknown) (no (unknown) (unknown) may occur. (units (unk nown) date) Occasional unknown) wrong-word or 'sound-alike' substitutions may have (unknown) (no (unknown) (unknown) measures. (units (unkn own) date) unknown) (unknown) (no (unknown) (unknown) occurred due to (units (unknown) date) the inherent unknown) limitations of voice recognition software. Please (unknown) (no (unknown) (unknown) past medical (units (u nknown) date) history is unknown) unremarkable. Patient seemed to handle symptoms quite (unknown) (no (unknown) (unknown) patent. (units (unkno wn) date) unknown) (unknown) (no (unknown) (unknown) prescribe (units (unkn own) date) antiviral. She unknown) expressed understanding. Advised on rest, supportive (unknown) (no (unknown) (unknown) pros and cons of (units (unknown) date) anti viral unknown) Paxlovid, patient does not meet criteria for (unknown) (no (unknown) (unknown) rales, or (units (unkn own) date) rhonchi. unknown) (unknown) (no (unknown) (unknown) read the note (units ( unknown) date) carefully and unknown) recognize, using context, where these substitutions (unknown) (no (unknown) (unknown) software. (units (unkn own) date) Although every unknown) effort is made to edit content, derrick hand errors (unknown) (no (unknown) (unknown) this morning. (units ( unknown) date) unknown) (unknown) (no (unknown) (unknown) w-grade fever, (units (unknown) date) body aches, unknown) headaches, some congestion, chest tightness for past (unknown) (no (unknown) (unknown) well, advised on (units (unknown) date) symptom control, unknown) gargling, taking anti-inflammatory . Discussed Social History date description facility 2022-09-03 00:00 Never smoked tobacco ([facility] Vital Signs date measurement value units 2022-09-03 00:00 BMI 31.1 kg/m2 2022-09-03 00:00 BP_diastolic 70 mmHg 2022-09-03 00:00 BP_systolic 120 mmHg 2022-09-03 00:00 heart_rate 79 /min 2022-09-03 00:00 height_metric 160.02 cm 2022-09-03 00:00 height_standard 63 in 2022-09-03 00:00 o2_saturation 99 % 2022-09-03 00:00 respiration_rate 18 /min 2022-09-03 00:00 temperature_metric 36.67 C 2022-09-03 00:00 temperature_standard 98 F 2022-09-03 00:00 weight_metric 79.57 kg 2022-09-03 00:00 weight_standard 175.42 lb
[2022-09-23 13:17] LABS: BASOPHILS % (AUTO) 0.5 %; EOSINOPHILS # (AUTO) 0.1 10^3/uL (0.0-0.7); EOSINOPHILS % (AUTO) 1.2 %; HCT - HEMATOCRIT 41.5 % (37.0-47.0); HGB - HEMOGLOBIN 13.1 g/dL (12.0-16.0); LYMPHOCYTES # (AUTO) 1.5 10^3/uL (1.5-3.5); LYMPHOCYTES % (AUTO) 17.1 %; MEAN CORPUSCULAR HEMOGLOBIN 26.8 pg (27.0-31.0); MEAN CORPUSCULAR HGB CONC 31.6 g/dL (32.0-36.0); MEAN CORPUSCULAR VOLUME 84.9 fL (81.0-99.0); MEAN PLATELET VOLUME 10.5 fL (7.9-10.8); MONOCYTES # (AUTO) 0.4 10^3/uL (0.0-1.0); MONOCYTES % (AUTO) 5.1 %; NEUTROPHILS # (AUTO) 6.5 10^3/uL (1.5-6.6); NEUTROPHILS % (AUTO) 75.9 %; PLT - PLATELET COUNT 313 10^3/uL (130-450); RED BLOOD COUNT 4.89 10^6/uL (4.20-5.40); RED CELL DISTRIBUTION WIDTH 12.5 % (12.0-15.0); WHITE BLOOD COUNT 8.6 x10^3/uL (4.8-10.8)
[2022-09-23 13:32] LABS: CLARITY,URINE CLEAR (CLEAR)
[2022-09-23 13:34] LABS: BACTERIA,URINE None Seen /HPF (None Seen); RBC,URINE 0-5 /HPF (0-5); SQUAMOUS EPITHELIAL CELL,UR FEW Squamous (<= Few)
[2022-09-23 13:47] LABS: ALBUMIN 4.5 g/dL (3.2-5.5); ALBUMIN/GLOBULIN RATIO 1.5 (1.0-2.2); CALCIUM 9.6 mg/dL (8.5-10.3); CREATININE 0.5 mg/dL (0.4-1.0); TOTAL PROTEIN 7.6 g/dL (6.7-8.2)
== END 2022-09-23 14:10 | disposition home or self-care (01) ==
LOC: ED 11:45
DX: R20.2 Paresthesia of skin (principal); E80.7 Disorder of bilirubin metabolism, unspecified; R44.8 Other symptoms and signs involving general sensations and perceptions
CPT/HCPCS: 36415; 80053; 81001; 81003; 83690; 84702; 85025; 87086; 93005; 99283

== ENCOUNTER 2022-10-26 15:53 | Outpatient (CLI) | payer OTHER ==
[2022-10-26 16:29] LABS: BASOPHILS % (AUTO) 0.6 %; EOSINOPHILS # (AUTO) 0.1 10^3/uL (0.0-0.7); HCT - HEMATOCRIT 40.8 % (37.0-47.0); LYMPHOCYTES # (AUTO) 2.5 10^3/uL (1.5-3.5); LYMPHOCYTES % (AUTO) 34.4 %; MEAN CORPUSCULAR HEMOGLOBIN 26.8 pg (27.0-31.0); MEAN CORPUSCULAR HGB CONC 31.9 g/dL (32.0-36.0); MEAN CORPUSCULAR VOLUME 84.1 fL (81.0-99.0); MEAN PLATELET VOLUME 10.3 fL (7.9-10.8); MONOCYTES # (AUTO) 0.6 10^3/uL (0.0-1.0); MONOCYTES % (AUTO) 8.1 %; NEUTROPHILS # (AUTO) 3.9 10^3/uL (1.5-6.6); NEUTROPHILS % (AUTO) 54.6 %; PLT - PLATELET COUNT 284 10^3/uL (130-450); RED BLOOD COUNT 4.85 10^6/uL (4.20-5.40); RED CELL DISTRIBUTION WIDTH 13.2 % (12.0-15.0); WHITE BLOOD COUNT 7.2 x10^3/uL (4.8-10.8)
[2022-10-26 16:58] LABS: THYROID STIMULATING HORMONE 1.69 uIU/mL (0.34-5.60)
--- NOTE | 2022-10-26 17:21 | XRAY Report ---
PROCEDURE: Hip w/Pelvis 2-3V LT INDICATIONS: LEFT HIP PAIN TECHNIQUE: AP pelvis with lateral view(s) of the left hip(s). COMPARISON: None. FINDINGS: Bones: No fractures or dislocations. Pelvic ring appears intact. No suspicious bony lesions. Soft tissues: The visualized bowel gas pattern is normal. No suspicious soft tissue calcifications. IMPRESSION: No acute bony abnormality. Reviewed by: Tony Gallego on 10/26/2022 5:20 PM PST Approved by: Tony Gallego on 10/26/2022 5:20 PM PST Station ID: [id number]
[2022-10-26 17:26] LABS: FOLLICLE STIMULATING HORMONE 4.17 mIU/mL; LUTEINIZING HORMONE 5.23 mIU/mL
[2022-10-30 12:08] LABS: ANTINUCLEAR ANTIBODIES IFA Negative (.)
== END 2022-10-26 15:54 | disposition home or self-care (01) ==
LOC: DI 15:53
PROVIDERS: ATTEND Internal Medicine
DX: M25.552 Pain in left hip (principal)
CPT/HCPCS: 36415; 83001; 83002; 84443; 85025; 86038

== ENCOUNTER 2022-10-28 11:31 | Outpatient (CLI) | payer OTHER ==
[2022-10-28 14:42] LABS: ESTIMATED AVERAGE GLUCOSE 100 mg/dL (70-100); HEMOGLOBIN A1c% 5.1 % (4.27-6.07)
== END 2022-10-28 11:32 | disposition home or self-care (01) ==
LOC: LAB 11:31
PROVIDERS: ATTEND Internal Medicine
DX: R35.0 Frequency of micturition (principal)
CPT/HCPCS: 36415; 82947; 83036

== ENCOUNTER 2022-11-27 10:35 | Emergency (ER) | payer OTHER ==
[2022-11-27 10:47] VITALS: BP 122/80
--- OUTSIDE RECORDS SUMMARY | 2022-11-27 11:26 | EXTERNAL MEDICAL SUMMARY RPT | Continuity of Care Document ---
:1980 Author Organization [facility] Address [address] [place] [address] Phone Care Team Providers Name Role Phone [...] own) date) unknown) (unknown) (no (unknown) (unknown) [facility] (units (unknown) date) Medicine unknown) (unknown) (no (unknown) (unknown) [place], [place] (units ( unknown) date) [id number] unknown) (unknown) (no (unknown) (unknown) Attending Dr: (units ( unknown) date) Yvette Abrams unknown) P.A-C (unknown) (no (unknown) (unknown) COVID + pt (units (unk nown) date) presents unknown) requesting antiviral. Symptoms for 4 days. 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 [...] own) date) unknown) (unknown) (no (unknown) (unknown) [facility] (units (unknown) date) Medicine unknown) (unknown) (no (unknown) (unknown) [place], [place] (units ( unknown) date) [id number] unknown) (unknown) (no (unknown) (unknown) Attending Dr: [...] (unknown) (unknown) : 1980 (units (unknown) date) Acct:[id number] unknown) (unknown) (no (unknown) (unknown) Dept at [...] (unknown) Patient: (units (unkno wn) date) Reid Melgar unknown) nnart M (unknown) (no (unknown) (unknown) Position Sitting (units (unknown) date) unknown) (unknown) (no (unknown) (unknown) Pulse 79 (units (unkno wn) date) unknown) (unknown) (no (unknown) (unknown) Pulse Oximetry (units (unknown) date) (%) 99 unknown) (unknown) (no (unknown) (unknown) Pulse Source (units (u nknown) date) Monitor unknown) (unknown) (no (unknown) (unknown) R#: [id number] (units (unknown) date) unknown) (unknown) (no (unknown) [...] (unknown) (unknown) 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 (units ( unknown) date) unknown) (unknown) (no (unknown) (unknown) w-grade fever, (units (unknown) date) body aches, unknown) headaches, some congestion, chest tightness for past (unknown) (no (unknown) (unknown) well, advised on (units (unknown) date) symptom control, unknown) gargling, taking anti-inflammatory . Discussed Social History date description facility 2022-09-03 00:00 Never smoked tobacco ([facility] Vital Signs date measurement value units 2022-09-03 [...]
--- NOTE | 2022-11-27 13:08 | ED Physician Documentation ---
History of Present Illness - Stated complaint Stated Complaint: L HIP/LEG PX - Chief complaint Chief Complaint: Ext Problem - Additonal information Additional information: 42-year-old woman with no significant health issues presents with left hip and pelvic pain has been going on for 3 months. Coming and going but worse over the last 2 to 3 days. Had an x-ray done with her PCP about a month ago which was negative. She also had 2 days of nonbloody diarrhea. She notes that she also had a cervical biopsy with unclear pathology yet just a few days ago in [place]. PD PAST MEDICAL HISTORY - Past Medical History Past Medical History: No - Past Surgical History Past Surgical History: No - Present Medications Home Medications: Ambulatory Orders Medication Instructions Recorded Confirmed No Known Home Medications 11/27/22 11/27/22 - Allergies Allergies/Adverse Reactions: Allergies Allergy/AdvReac Type Severity Reaction Status Date / Time No Known Drug Allergies Allergy Verified 11/27/22 10:47 - Social History Does the pt smoke?: No Smoking Status: Never smoker Does the pt drink ETOH?: No Does the pt have substance abuse?: No - Immunizations Immunizations are current?: No - POLST Patient has POLST: No PD ED PE NORMAL - Vitals Vital signs reviewed: Yes - General General: Alert and oriented X 3, No acute distress - Abdomen Abdomen: Normal bowel sounds, Soft, Other (I am unable to recreate her pain with palpation of the pelvic bones on the left nor with rotation of the hip. That said she is tender in the left pelvis.) - Neuro Neuro: Alert and oriented X 3, Normal speech Results - Vitals Vitals: Vital Signs - 24 hr 11/27/22 10:42 Temperature 37.0 C Heart Rate 77 Respiratory 16 Rate Blood Pressure 122/80 O2 Saturation 100 Oxygen O2 Source Room air - Labs Labs: Laboratory Tests 11/27/22 11/27/22 11/27/22 13:20 13:20 14:00 WBC 8.7 RBC 5.01 Hgb 13.4 Hct 42.2 MCV 84.2 MCH 26.7 L MCHC 31.8 L RDW 13.0 Plt Count 309 MPV 9.8 Neut # (Auto) 5.1 Lymph # (Auto) 2.8 [place] # (Auto) 0.6 Eos # (Auto) 0.2 Baso # (Auto) 0.0 Absolute Nucleated RBC 0.00 Nucleated RBC % 0.0 Sodium 137 Potassium 3.5 Chloride 105 Carbon Dioxide 26 Anion Gap 6.0 BUN 10 Creatinine 0.5 Estimated GFR (MDRD) 137 Glucose 87 Calcium 9.2 Urine Color YELLOW Urine Clarity CLEAR Urine pH 6.5 Ur Specific [place] 1.020 Urine Protein NEGATIVE Urine Glucose (UA) NEGATIVE Urine Ketones 15 H Urine Occult Blood NEGATIVE Urine Nitrite NEGATIVE Urine Bilirubin NEGATIVE Urine Urobilinogen 0.2 (NORMAL) Ur Leukocyte Esterase NEGATIVE Ur Microscopic Review NOT INDICATED Urine Culture Comments NOT INDICATED Urine HCG, Qual NEGATIVE - Rads (name of study) CTA/P Relevant Findings:: Final report received, EMP independent interpretation of test PD Medical Decision Making - ED course ED course: She presents with subacute intermittent left hip pain but given her exam it actually seems more like pelvic pathology. CT of the abdomen pelvis with IV contrast was negative for acute pathology. She notes she is midcycle right now though so could be mittelschmerz? Does not seem like the hip per se but advised follow-up with her PCP both for gynecology, and consideration of hip MRI. Departure - Departure Disposition: 01 Home, Self Care Clinical Impression: Pelvic pain in female Condition: Good Record reviewed to determine appropriate education?: Yes Instructions: ED Abdominal Pain Female Non-Specific Abdominal Pain Follow-Up: Meghana Bridges MD [Primary Care Provider] - Comments: Diagnostic testing today is unremarkable with normal labs and CAT scan. That said given the location of your pain I suspect it is probably from your pelvic organs as opposed to an actual bony/hip problem. Follow-up with your primary care physician for consideration of gynecology referral. Return for new or worsening symptoms. Ibuprofen as needed for the pain. Discharge Date/Time: 11/27/22 14:54
[2022-11-27] MEDS ORDERED: iohexoL-300 100 ML VIAL ONE (13:13)
[2022-11-27 13:27] LABS: BASOPHILS % (AUTO) 0.5 %; EOSINOPHILS # (AUTO) 0.2 10^3/uL (0.0-0.7); EOSINOPHILS % (AUTO) 2.1 %; HCT - HEMATOCRIT 42.2 % (37.0-47.0); HGB - HEMOGLOBIN 13.4 g/dL (12.0-16.0); LYMPHOCYTES # (AUTO) 2.8 10^3/uL (1.5-3.5); LYMPHOCYTES % (AUTO) 32.6 %; MEAN CORPUSCULAR HEMOGLOBIN 26.7 pg (27.0-31.0); MEAN CORPUSCULAR HGB CONC 31.8 g/dL (32.0-36.0); MEAN CORPUSCULAR VOLUME 84.2 fL (81.0-99.0); MEAN PLATELET VOLUME 9.8 fL (7.9-10.8); MONOCYTES # (AUTO) 0.6 10^3/uL (0.0-1.0); MONOCYTES % (AUTO) 6.3 %; NEUTROPHILS # (AUTO) 5.1 10^3/uL (1.5-6.6); NEUTROPHILS % (AUTO) 58.3 %; PLT - PLATELET COUNT 309 10^3/uL (130-450); RED BLOOD COUNT 5.01 10^6/uL (4.20-5.40); WHITE BLOOD COUNT 8.7 x10^3/uL (4.8-10.8)
[2022-11-27 13:34] LABS: CALCIUM 9.2 mg/dL (8.5-10.3); CREATININE 0.5 mg/dL (0.4-1.0); POTASSIUM 3.5 mmol/L (3.5-5.0)
[2022-11-27 14:03] LABS: BILIRUBIN,URINE NEGATIVE (NEGATIVE); GLUCOSE, URINE (UA) NEGATIVE (NEGATIVE); KETONES,URINE (UA) 15 mg/dL (NEGATIVE); LEUKOCYTE ESTERASE, URINE NEGATIVE (NEGATIVE); NITRITE,URINE NEGATIVE (NEGATIVE); OCCULT BLOOD,URINE NEGATIVE (NEGATIVE); PH,URINE 6.5 PH (5.0-7.5); PROTEIN,URINE NEGATIVE (NEGATIVE); UROBILINOGEN,URINE 0.2 (NORMAL) E.U./dL (NORMAL)
[2022-11-27 14:05] LABS: CLARITY,URINE CLEAR (CLEAR)
[2022-11-27 14:06] LABS: HCG UR QUAL NEGATIVE
--- NOTE | 2022-11-27 14:36 | CT Report ---
PROCEDURE: ABDOMEN/PELVIS W INDICATIONS: LLQ pain, IV only CONTRAST: 100ml Omnipaque 300 TECHNIQUE: After the administration of intravenous contrast, 5 mm thick sections acquired from the diaphragms to the symphysis. 5 mm thick coronal and sagittal reformats were acquired. For radiation dose reducti on, the following was used: automated exposure control, adjustment of mA and/or kV according to [place] ent size. COMPARISON: None FINDINGS: Image quality: Excellent. Lung bases and heart: Unremarkable. Liver: Unremarkable. Gallbladder and biliary tree: Unremarkable. No biliary dilation. Spleen: Unremarkable. Pancreas: Unremarkable. Adrenals: Unremarkable. Kidneys and ureters: Unremarkable. Bowel and peritoneum: No bowel distension. No pathologic free fluid. Lymph nodes: No central or retroperitoneal adenopathy. Vessels: Unremarkable. PELVIS Reproductive organs: Symmetric ovaries. Bladder: Unremarkable. Lymph nodes: Unremarkable. Bones: No aggressive osseous abnormality. Other: None. IMPRESSION: No findings to explain the patient's left lower quadrant pain. Symmetric ovaries. No nephrolithiasis or colonic diverticulitis. Reviewed by: Tony Gallego on 11/27/2022 2:35 PM PDT Approved by: Tony Gallego on 11/27/2022 2:35 PM PDT Station ID: [id number]
== END 2022-11-27 14:54 | disposition home or self-care (01) ==
LOC: ED 10:35
DX: R10.2 Pelvic and perineal pain (principal)
CPT/HCPCS: 36415; 74177; 80048; 81003; 81025; 85025; 99283; 99284; Q9967; 81001; 87086